=== PATIENT | female | born 1930 | race Caucasian/White ===

== ENCOUNTER → 2016-05-24 | Outpatient (REF) | payer OTHER ==
[~2016-05-24] MED LIST: /PRAV20TA OR; /WARF25TA OR; ASPIRIN PO; FISHCAP; HYDROCODONE PO; LOPR50TA OR; LOSARTAN/HCTZ PO; PERC5TAB8 OR; TYLENOL PO
[2016-05-24 18:50] LABS: ALBUMIN 3.8 GM/DL (3.2-5.2); ALBUMIN/GLOBULIN RATIO 1.31 (1.00-1.93); BILIRUBIN,TOTAL 0.8 MG/DL (0.2-1.0); CREATININE FOR GFR 1.04 MG/DL (0.55-1.02); GLOMERULAR FILTRATION RATE 53.9 (>32); POTASSIUM SERUM 4.2 MEQ/L (3.5-5.1); TOTAL PROTEIN 6.7 GM/DL (6.4-8.2)
== END ==
LOC: M SFHCCLAY 11:32
PROVIDERS: ATTEND Family Medicine
DX: I10 Essential (primary) hypertension (principal)
CPT/HCPCS: 80053; G0463

== ENCOUNTER → 2016-11-13 | Outpatient (REF) | payer OTHER ==
[2016-11-13 13:11] LABS: ALBUMIN 3.5 GM/DL (3.2-5.2); ALKALINE PHOSPHATASE 90 U/L (45-117); ALT/SGPT 15 U/L (12-78); ANION GAP 5 MEQ/L (8-16); AST/SGOT 16 U/L (15-37); BLOOD UREA NITROGEN 22 MG/DL (7-18); CALCIUM LEVEL 8.7 MG/DL (8.8-10.2); CARBON DIOXIDE LEVEL 31 MEQ/L (21-32); CHLORIDE LEVEL 103 MEQ/L (98-107); CREATININE FOR GFR 0.84 MG/DL (0.55-1.02); GLOMERULAR FILTRATION RATE > 60.0 (>32); GLUCOSE, FASTING 87 MG/DL (83-110); POTASSIUM SERUM 3.6 MEQ/L (3.5-5.1); SODIUM LEVEL 139 MEQ/L (136-145); TOTAL PROTEIN 6.2 GM/DL (6.4-8.2)
== END ==
LOC: M SFHCCLAY 09:31
PROVIDERS: ATTEND Family Medicine
DX: I10 Essential (primary) hypertension (principal)
CPT/HCPCS: 80053; G0463

== ENCOUNTER → 2017-03-25 | Outpatient (REF) | payer OTHER ==
[2017-03-26 13:46] LABS: ALBUMIN/GLOBULIN RATIO 0.94 (1.00-1.93); BILIRUBIN,TOTAL 0.9 MG/DL (0.2-1.0); CALCIUM LEVEL 8.9 MG/DL (8.8-10.2); CREATININE FOR GFR 1.01 MG/DL (0.55-1.02); FREE T4 1.64 NG/DL (0.76-1.46); GLOMERULAR FILTRATION RATE 55.6 (>32); POTASSIUM SERUM 3.7 MEQ/L (3.5-5.1); TOTAL PROTEIN 6.2 GM/DL (6.4-8.2)
== END ==
LOC: M SFHCCLAY 16:17
PROVIDERS: ATTEND Family Medicine
DX: R60.9 Edema, unspecified (principal)
CPT/HCPCS: 36415; 80053; 84439; 84443; G0463

== ENCOUNTER → 2017-04-11 | Outpatient (REF) | payer OTHER ==
[2017-04-11 17:25] LABS: BASO # 0.1 10^3/uL (0.0-0.2); EOS # 0.1 10^3/uL (0.0-0.50); EOS % 1.4 % (0.0-3.0); IMMATURE GRANULOCYTE % 0.4 % (0-0); LYMPH # 1.2 10^3/uL (1.5-4.5); LYMPH % 24.7 % (24.0-44.0); MEAN CORPUSCULAR HEMOGLOBIN 30.9 pg (27.0-33.0); MEAN CORPUSCULAR HGB CONC 32.1 g/dl (32.0-36.5); MEAN CORPUSCULAR VOLUME 96.4 fl (80.0-96.0); MONO # 0.5 10^3/uL (0.0-0.8); MONO % 10.4 % (0.0-5.0); NEUTROPHILS % 62.1 % (36.0-66.0); PLATELET COUNT, AUTOMATED 220 10^3/uL (150-450); RED CELL DISTRIBUTION WIDTH 16.1 % (11.5-14.5); WHITE BLOOD COUNT 4.9 10^3/uL (4.0-10.0)
[2017-04-11 17:47] LABS: CREATININE FOR GFR 0.96 MG/DL (0.55-1.02); GLOMERULAR FILTRATION RATE 58.9 (>32); POTASSIUM SERUM 3.7 MEQ/L (3.5-5.1)
== END ==
LOC: M SFHCCLAY 11:40
PROVIDERS: ATTEND Family Medicine
DX: R53.83 Other fatigue (principal); I10 Essential (primary) hypertension; I48.0 Paroxysmal atrial fibrillation

== ENCOUNTER → 2017-04-11 | Outpatient (CLI) | payer OTHER ==
--- NOTE | 2017-04-11 17:15 | REP ---
CHEST X-RAY: CLINICAL: Hypertension and chest pain. TECHNIQUE: PA and lateral. COMPARISON: 08/13/2011 FINDINGS: Cardiomegaly is appreciated with pace maker leads overlying the right atrium and right ventricle. The lung cain demonstrates diffuse chronic interstitial changes with prominent pulmonary vasculature and scattered basilar ground glass opacities (right greater than left). Subtle superimposed acute atelectasis can not be excluded. Skeletal structure demonstrate age related degenerative changes, predominantly involving the thoracic spine and shoulders. IMPRESSION: Cardiomegaly and chronic interstitial changes including evidence for chronic pulmonary vasculature congestion. Superimposed interstitial edema and basilar atelectasis can not be excluded. Stable hiatal hernia.
== END ==
LOC: M CLY 11:48
PROVIDERS: ATTEND Family Medicine
DX: I10 Essential (primary) hypertension (principal); K44.9 Diaphragmatic hernia without obstruction or gangrene; Z95.0 Presence of cardiac pacemaker; R53.83 Other fatigue; I48.0 Paroxysmal atrial fibrillation
CPT/HCPCS: 71020; 80048; 83540; 85025; G0463

== ENCOUNTER 2017-05-25 14:02 | Inpatient (IN) | payer OTHER, MEDICARE ==
[2017-05-25 14:55] LABS: BASO % 0.7 % (0.0-1.0); EOS # 0.2 10^3/uL (0.0-0.50); EOS % 3.4 % (0.0-3.0); HEMOGLOBIN 12.3 g/dl (12.0-16.0); IMMATURE GRANULOCYTE % 0.4 % (0-0); LYMPH # 1.3 10^3/uL (1.5-4.5); LYMPH % 24.3 % (24.0-44.0); MEAN CORPUSCULAR HEMOGLOBIN 28.7 pg (27.0-33.0); MEAN CORPUSCULAR HGB CONC 32.4 g/dl (32.0-36.5); MEAN CORPUSCULAR VOLUME 88.6 fl (80.0-96.0); MONO # 0.8 10^3/uL (0.0-0.8); MONO % 14.6 % (0.0-5.0); NEUTROPHILS % 56.6 % (36.0-66.0); PLATELET COUNT, AUTOMATED 226 10^3/uL (150-450); RED BLOOD COUNT 4.29 10^6/uL (4.00-5.40); RED CELL DISTRIBUTION WIDTH 14.5 % (11.5-14.5); WHITE BLOOD COUNT 5.4 10^3/uL (4.0-10.0)
[2017-05-25 15:25] LABS: ALBUMIN 3.3 GM/DL (3.2-5.2); ALKALINE PHOSPHATASE 152 U/L (45-117); ALT/SGPT 67 U/L (12-78); ANION GAP 11 MEQ/L (8-16); AST/SGOT 71 U/L (7-37); BILIRUBIN,DIRECT 0.4 MG/DL (0.0-0.2); BLOOD UREA NITROGEN 36 MG/DL (7-18); CALCIUM LEVEL 8.6 MG/DL (8.8-10.2); CARBON DIOXIDE LEVEL 27 MEQ/L (21-32); CHLORIDE LEVEL 98 MEQ/L (98-107); CPK CREATINE PHOSPHOKINASE 41 U/L (26-192); CREATININE FOR GFR 1.25 MG/DL (0.55-1.02); GLOMERULAR FILTRATION RATE 43.5 (>32); GLUCOSE, FASTING 131 MG/DL (83-110); LIPASE 211 U/L (73-393); MAGNESIUM LEVEL 2.1 MG/DL (1.8-2.4); POTASSIUM SERUM 3.8 MEQ/L (3.5-5.1); SODIUM LEVEL 136 MEQ/L (136-145); TOTAL PROTEIN 6.3 GM/DL (6.4-8.2); TROPONIN I < 0.02 NG/ML (< 0.10)
[2017-05-25 15:31] LABS: MB/CK RELATIVE INDEX 2.43 (< OR =4); NT-PRO BNP 18800 PG/ML (<450)
[2017-05-25] MEDS: FUROSEMIDE 40 MG/4 ML VIAL (J1940) IV (16:38)
[2017-05-25] MEDS ORDERED: ISOVUE-370 76% 100ML VIAL (Q9967) As Ordered (16:42)
[2017-05-25] MEDS ORDERED: CEPACOL LOZENGE PO (17:15)
[2017-05-25] MEDS ORDERED: ACETAMINOPHEN TAB 650MG DOSE (2X325MG) PO (17:15)
[2017-05-25] MEDS ORDERED: ONDANSETRON 4MG/2ML VIAL (J2405) IV (17:15)
[2017-05-25 18:04] LABS: MAGNESIUM LEVEL 2.2 MG/DL (1.8-2.4)
[2017-05-25 18:15] LABS: LACTIC ACID SEPSIS PROTOCOL 2.2 MMOL/L (0.4-2.0)
[2017-05-25] MEDS: POTASSIUM CHLORIDE 10 MEQ SR TABLET PO (18:34)
[2017-05-25] MEDS: RIVAROXABAN 15 MG TAB (XARELTO) PO (18:34)
[2017-05-25] MEDS: METOPROLOL TART 25 MG TABLET PO (20:57)
[2017-05-25] MEDS: DOCUSATE SODIUM 100 MG CAP PO (20:57)
[2017-05-25] MEDS: PERCOCET 5MG/325MG TAB PO (21:01)
[2017-05-25 21:15] LABS: CPK CREATINE PHOSPHOKINASE 35 U/L (26-192); TROPONIN I 0.02 NG/ML (< 0.10)
[2017-05-25 21:16] LABS: MB/CK RELATIVE INDEX 2.85 (< OR =4)
[2017-05-25] MEDS: FUROSEMIDE 20 MG/2 ML VIAL (J1940) IV (22:45)
[2017-05-26 04:38] LABS: BASO # 0.1 10^3/uL (0.0-0.2); BASO % 1.1 % (0.0-1.0); EOS # 0.2 10^3/uL (0.0-0.50); EOS % 3.7 % (0.0-3.0); HEMATOCRIT 36.3 % (36.0-47.0); HEMOGLOBIN 11.7 g/dl (12.0-16.0); IMMATURE GRANULOCYTE % 0.4 % (0-0); LYMPH # 1.5 10^3/uL (1.5-4.5); MEAN CORPUSCULAR HGB CONC 32.2 g/dl (32.0-36.5); MEAN CORPUSCULAR VOLUME 86.8 fl (80.0-96.0); MONO # 0.9 10^3/uL (0.0-0.8); MONO % 15.9 % (0.0-5.0); NEUTROPHILS # 2.8 10^3/uL (1.8-7.7); NEUTROPHILS % 51.9 % (36.0-66.0); PLATELET COUNT, AUTOMATED 217 10^3/uL (150-450); RED BLOOD COUNT 4.18 10^6/uL (4.00-5.40); RED CELL DISTRIBUTION WIDTH 14.4 % (11.5-14.5); WHITE BLOOD COUNT 5.4 10^3/uL (4.0-10.0)
[2017-05-26 04:50] LABS: INR 2.13; PROTHROMBIN TIME 24.6 SECONDS (12.4-14.5)
[2017-05-26 04:51] LABS: PARTIAL THROMBOPLASTIN TIME 40.9 SECONDS (26.8-37.9)
[2017-05-26 05:07] LABS: ALBUMIN 2.9 GM/DL (3.2-5.2); ALBUMIN/GLOBULIN RATIO 0.91 (1.00-1.93); ALKALINE PHOSPHATASE 133 U/L (45-117); ALT/SGPT 75 U/L (12-78); ANION GAP 11 MEQ/L (8-16); AST/SGOT 88 U/L (7-37); BILIRUBIN,TOTAL 1.2 MG/DL (0.2-1.0); BLOOD UREA NITROGEN 36 MG/DL (7-18); CALCIUM LEVEL 8.8 MG/DL (8.8-10.2); CARBON DIOXIDE LEVEL 29 MEQ/L (21-32); CHLORIDE LEVEL 97 MEQ/L (98-107); CPK CREATINE PHOSPHOKINASE 32 U/L (26-192); CREATININE FOR GFR 1.37 MG/DL (0.55-1.02); GLOMERULAR FILTRATION RATE 39.1 (>32); GLUCOSE, FASTING 93 MG/DL (83-110); MB/CK RELATIVE INDEX 3.12 (< OR =4); POTASSIUM SERUM 3.5 MEQ/L (3.5-5.1); SODIUM LEVEL 137 MEQ/L (136-145); TOTAL PROTEIN 6.1 GM/DL (6.4-8.2); TROPONIN I 0.03 NG/ML (< 0.10)
[2017-05-26] MEDS: DOCUSATE SODIUM 100 MG CAP PO ×2 (08:00→21:24)
[2017-05-26] MEDS: OCUVITE 1 TAB PO (08:00)
[2017-05-26] MEDS: METOPROLOL TART 25 MG TABLET PO ×3 (08:00→21:25)
[2017-05-26] MEDS: hydroCHLOROthiazide 12.5 MG CAPSULE PO (08:01)
[2017-05-26] MEDS: PANTOPRAZOLE 40MG TAB (PROTONIX) PO (08:01)
[2017-05-26] MEDS: PERCOCET 5MG/325MG TAB PO ×2 (08:02→21:25)
[2017-05-26] MEDS: FUROSEMIDE 20 MG/2 ML VIAL (J1940) IV (12:31)
[2017-05-26] MEDS: RIVAROXABAN 15 MG TAB (XARELTO) PO (18:24)
[2017-05-27] MEDS: FUROSEMIDE 20 MG/2 ML VIAL (J1940) IV ×2 (00:43→11:32)
[2017-05-27 05:34] LABS: BASO # 0.1 10^3/uL (0.0-0.2); BASO % 1.1 % (0.0-1.0); EOS # 0.2 10^3/uL (0.0-0.50); EOS % 2.7 % (0.0-3.0); HEMATOCRIT 38.2 % (36.0-47.0); HEMOGLOBIN 12.2 g/dl (12.0-16.0); IMMATURE GRANULOCYTE % 0.4 % (0-0); LYMPH # 1.1 10^3/uL (1.5-4.5); LYMPH % 20.1 % (24.0-44.0); MEAN CORPUSCULAR HGB CONC 31.9 g/dl (32.0-36.5); MEAN CORPUSCULAR VOLUME 87.6 fl (80.0-96.0); MONO # 0.9 10^3/uL (0.0-0.8); MONO % 15.9 % (0.0-5.0); NEUTROPHILS # 3.3 10^3/uL (1.8-7.7); NEUTROPHILS % 59.8 % (36.0-66.0); PLATELET COUNT, AUTOMATED 219 10^3/uL (150-450); RED BLOOD COUNT 4.36 10^6/uL (4.00-5.40); RED CELL DISTRIBUTION WIDTH 14.6 % (11.5-14.5); WHITE BLOOD COUNT 5.5 10^3/uL (4.0-10.0)
[2017-05-27 05:54] LABS: INR 1.44; PROTHROMBIN TIME 17.9 SECONDS (12.4-14.5)
[2017-05-27 05:55] LABS: PARTIAL THROMBOPLASTIN TIME 34.9 SECONDS (26.8-37.9)
[2017-05-27 05:58] LABS: ALBUMIN 3.2 GM/DL (3.2-5.2); ALKALINE PHOSPHATASE 140 U/L (45-117); ALT/SGPT 96 U/L (12-78); ANION GAP 10 MEQ/L (8-16); AST/SGOT 96 U/L (7-37); BILIRUBIN,TOTAL 1.2 MG/DL (0.2-1.0); BLOOD UREA NITROGEN 34 MG/DL (7-18); CALCIUM LEVEL 8.7 MG/DL (8.8-10.2); CARBON DIOXIDE LEVEL 31 MEQ/L (21-32); CHLORIDE LEVEL 96 MEQ/L (98-107); CREATININE FOR GFR 1.35 MG/DL (0.55-1.02); GLOMERULAR FILTRATION RATE 39.8 (>32); GLUCOSE, FASTING 121 MG/DL (83-110); MAGNESIUM LEVEL 1.8 MG/DL (1.8-2.4); POTASSIUM SERUM 3.1 MEQ/L (3.5-5.1); SODIUM LEVEL 137 MEQ/L (136-145); TOTAL PROTEIN 6.4 GM/DL (6.4-8.2)
[2017-05-27] MEDS: METOPROLOL TART 25 MG TABLET PO ×4 (09:00→23:00)
[2017-05-27] MEDS: DOCUSATE SODIUM 100 MG CAP PO ×2 (09:36→21:00)
[2017-05-27] MEDS: OCUVITE 1 TAB PO (09:36)
[2017-05-27] MEDS: PANTOPRAZOLE 40MG TAB (PROTONIX) PO (09:36)
[2017-05-27] MEDS: hydroCHLOROthiazide 12.5 MG CAPSULE PO (09:36)
[2017-05-27] MEDS: POTASSIUM CHLORIDE 10 MEQ SR TABLET PO ×2 (09:38→22:45)
[2017-05-27] MEDS: RIVAROXABAN 15 MG TAB (XARELTO) PO (17:05)
[2017-05-28 05:58] LABS: BASO # 0.1 10^3/uL (0.0-0.2); BASO % 0.8 % (0.0-1.0); EOS # 0.2 10^3/uL (0.0-0.50); HEMATOCRIT 38.8 % (36.0-47.0); HEMOGLOBIN 12.2 g/dl (12.0-16.0); IMMATURE GRANULOCYTE % 0.4 % (0-0); LYMPH # 1.6 10^3/uL (1.5-4.5); LYMPH % 22.4 % (24.0-44.0); MEAN CORPUSCULAR HEMOGLOBIN 27.8 pg (27.0-33.0); MEAN CORPUSCULAR HGB CONC 31.4 g/dl (32.0-36.5); MEAN CORPUSCULAR VOLUME 88.4 fl (80.0-96.0); MONO # 1.2 10^3/uL (0.0-0.8); NEUTROPHILS # 4.2 10^3/uL (1.8-7.7); NEUTROPHILS % 57.4 % (36.0-66.0); PLATELET COUNT, AUTOMATED 221 10^3/uL (150-450); RED BLOOD COUNT 4.39 10^6/uL (4.00-5.40); RED CELL DISTRIBUTION WIDTH 14.5 % (11.5-14.5); WHITE BLOOD COUNT 7.3 10^3/uL (4.0-10.0)
[2017-05-28 06:05] LABS: INR 2.05; PARTIAL THROMBOPLASTIN TIME 42.2 SECONDS (26.8-37.9); PROTHROMBIN TIME 23.8 SECONDS (12.4-14.5)
[2017-05-28 06:24] LABS: ALBUMIN 3.4 GM/DL (3.2-5.2); ALBUMIN/GLOBULIN RATIO 0.97 (1.00-1.93); ALKALINE PHOSPHATASE 151 U/L (45-117); ALT/SGPT 92 U/L (12-78); ANION GAP 11 MEQ/L (8-16); AST/SGOT 82 U/L (7-37); BILIRUBIN,TOTAL 1.3 MG/DL (0.2-1.0); BLOOD UREA NITROGEN 35 MG/DL (7-18); CALCIUM LEVEL 9.2 MG/DL (8.8-10.2); CARBON DIOXIDE LEVEL 30 MEQ/L (21-32); CHLORIDE LEVEL 96 MEQ/L (98-107); CREATININE FOR GFR 1.43 MG/DL (0.55-1.02); GLOMERULAR FILTRATION RATE 37.2 (>32); GLUCOSE, FASTING 121 MG/DL (70-100); MAGNESIUM LEVEL 1.8 MG/DL (1.8-2.4); POTASSIUM SERUM 4.2 MEQ/L (3.5-5.1); SODIUM LEVEL 137 MEQ/L (136-145); TOTAL PROTEIN 6.9 GM/DL (6.4-8.2)
[2017-05-28] MEDS: PANTOPRAZOLE 40MG TAB (PROTONIX) PO (09:21)
[2017-05-28] MEDS: DOCUSATE SODIUM 100 MG CAP PO ×2 (09:21→20:09)
[2017-05-28] MEDS: OCUVITE 1 TAB PO (09:21)
[2017-05-28] MEDS: DIGOXIN 0.25 MG TAB PO ×2 (09:22→17:46)
[2017-05-28] MEDS: hydroCHLOROthiazide 12.5 MG CAPSULE PO (09:22)
[2017-05-28] MEDS: METOPROLOL TART 25 MG TABLET PO ×3 (09:22→20:12)
[2017-05-28] MEDS: FUROSEMIDE 20 MG/2 ML VIAL (J1940) IV ×3 (12:43→23:56)
[2017-05-28 16:43] LABS: NT-PRO BNP 21081 PG/ML (<450)
[2017-05-28] MEDS: RIVAROXABAN 15 MG TAB (XARELTO) PO (17:46)
[2017-05-28] MEDS: RAMELTEON 8 MG TAB (ROZEREM) PO (20:10)
[2017-05-28] MEDS: PERCOCET 5MG/325MG TAB PO (20:10)
[2017-05-28 20:47] LABS: BEDSIDE GLUCOSE 134 MG/DL (83-110)
[2017-05-29 05:55] LABS: BASO # 0.1 10^3/uL (0.0-0.2); BASO % 1.1 % (0.0-1.0); EOS # 0.3 10^3/uL (0.0-0.50); EOS % 5.7 % (0.0-3.0); HEMATOCRIT 35.7 % (36.0-47.0); HEMOGLOBIN 11.6 g/dl (12.0-16.0); IMMATURE GRANULOCYTE % 0.4 % (0-0); LYMPH # 1.2 10^3/uL (1.5-4.5); LYMPH % 23.1 % (24.0-44.0); MEAN CORPUSCULAR HEMOGLOBIN 28.3 pg (27.0-33.0); MEAN CORPUSCULAR HGB CONC 32.5 g/dl (32.0-36.5); MEAN CORPUSCULAR VOLUME 87.1 fl (80.0-96.0); MONO # 0.9 10^3/uL (0.0-0.8); MONO % 16.6 % (0.0-5.0); NEUTROPHILS # 2.8 10^3/uL (1.8-7.7); NEUTROPHILS % 53.1 % (36.0-66.0); PLATELET COUNT, AUTOMATED 188 10^3/uL (150-450); RED CELL DISTRIBUTION WIDTH 14.6 % (11.5-14.5); WHITE BLOOD COUNT 5.2 10^3/uL (4.0-10.0)
[2017-05-29 06:13] LABS: ALBUMIN/GLOBULIN RATIO 0.97 (1.00-1.93); ALKALINE PHOSPHATASE 122 U/L (45-117); ALT/SGPT 73 U/L (12-78); ANION GAP 8 MEQ/L (8-16); AST/SGOT 60 U/L (7-37); BILIRUBIN,TOTAL 1.2 MG/DL (0.2-1.0); BLOOD UREA NITROGEN 32 MG/DL (7-18); CALCIUM LEVEL 8.6 MG/DL (8.8-10.2); CARBON DIOXIDE LEVEL 31 MEQ/L (21-32); CHLORIDE LEVEL 98 MEQ/L (98-107); CREATININE FOR GFR 1.31 MG/DL (0.55-1.02); GLOMERULAR FILTRATION RATE 41.2 (>32); GLUCOSE, FASTING 102 MG/DL (70-100); MAGNESIUM LEVEL 1.4 MG/DL (1.8-2.4); POTASSIUM SERUM 3.4 MEQ/L (3.5-5.1); SODIUM LEVEL 137 MEQ/L (136-145); TOTAL PROTEIN 6.1 GM/DL (6.4-8.2)
[2017-05-29 06:15] LABS: INR 2.47; PARTIAL THROMBOPLASTIN TIME 43.9 SECONDS (26.8-37.9); PROTHROMBIN TIME 27.7 SECONDS (12.4-14.5)
[2017-05-29] MEDS: POTASSIUM CHLORIDE 10 MEQ SR TABLET PO (08:16)
[2017-05-29] MEDS: OCUVITE 1 TAB PO (08:17)
[2017-05-29] MEDS: DOCUSATE SODIUM 100 MG CAP PO ×2 (08:22→20:38)
[2017-05-29] MEDS: hydroCHLOROthiazide 12.5 MG CAPSULE PO ×2 (08:22→08:25)
[2017-05-29] MEDS: FUROSEMIDE 20 MG/2 ML VIAL (J1940) IV ×3 (08:23→17:34)
[2017-05-29] MEDS: METOPROLOL TART 25 MG TABLET PO ×3 (08:23→20:39)
[2017-05-29] MEDS: DIGOXIN 0.125 MG TAB PO (08:23)
[2017-05-29] MEDS: MAG SULF 1GM/100ML (MAG RUN) 1 GM in APPROPRIATE DILUENT 1 EA IV (08:24)
[2017-05-29] MEDS ORDERED: DIGOXIN 0.25 MG TAB PO (09:00)
[2017-05-29] MEDS ORDERED: SLF 3 ML SYR IV (14:15)
[2017-05-29] MEDS: LIDOCAINE 5% (LIDODERM) PATCH TD (14:40)
[2017-05-29] MEDS: PERCOCET 5MG/325MG TAB PO (20:39)
[2017-05-29] MEDS: **NOTE PATIENT COMMENT** MISC XX (20:39)
[2017-05-29] MEDS: SLF 3 ML SYR IV (20:39)
[2017-05-30] MEDS: SLF 3 ML SYR IV (05:26)
[2017-05-30] MEDS: FUROSEMIDE 20 MG/2 ML VIAL (J1940) IV ×3 (05:26→12:55)
[2017-05-30 06:14] LABS: BASO % 0.8 % (0.0-1.0); EOS # 0.4 10^3/uL (0.0-0.50); EOS % 7.4 % (0.0-3.0); HEMATOCRIT 37.8 % (36.0-47.0); IMMATURE GRANULOCYTE % 0.4 % (0-0); LYMPH # 1.2 10^3/uL (1.5-4.5); LYMPH % 23.9 % (24.0-44.0); MEAN CORPUSCULAR HEMOGLOBIN 27.4 pg (27.0-33.0); MEAN CORPUSCULAR HGB CONC 31.7 g/dl (32.0-36.5); MEAN CORPUSCULAR VOLUME 86.3 fl (80.0-96.0); MONO # 0.7 10^3/uL (0.0-0.8); MONO % 15.1 % (0.0-5.0); NEUTROPHILS # 2.6 10^3/uL (1.8-7.7); NEUTROPHILS % 52.4 % (36.0-66.0); PLATELET COUNT, AUTOMATED 199 10^3/uL (150-450); RED BLOOD COUNT 4.38 10^6/uL (4.00-5.40); RED CELL DISTRIBUTION WIDTH 14.6 % (11.5-14.5); WHITE BLOOD COUNT 4.9 10^3/uL (4.0-10.0)
[2017-05-30 06:27] LABS: INR 1.26; PARTIAL THROMBOPLASTIN TIME 33.7 SECONDS (26.8-37.9); PROTHROMBIN TIME 16.1 SECONDS (12.4-14.5)
[2017-05-30 06:39] LABS: ALBUMIN 3.2 GM/DL (3.2-5.2); ALBUMIN/GLOBULIN RATIO 1.03 (1.00-1.93); ALKALINE PHOSPHATASE 114 U/L (45-117); ALT/SGPT 63 U/L (12-78); ANION GAP 9 MEQ/L (8-16); AST/SGOT 45 U/L (7-37); BILIRUBIN,TOTAL 1.3 MG/DL (0.2-1.0); BLOOD UREA NITROGEN 29 MG/DL (7-18); CALCIUM LEVEL 8.5 MG/DL (8.8-10.2); CARBON DIOXIDE LEVEL 31 MEQ/L (21-32); CHLORIDE LEVEL 98 MEQ/L (98-107); CREATININE FOR GFR 1.19 MG/DL (0.55-1.02); GLUCOSE, FASTING 97 MG/DL (70-100); MAGNESIUM LEVEL 1.7 MG/DL (1.8-2.4); POTASSIUM SERUM 3.4 MEQ/L (3.5-5.1); SODIUM LEVEL 138 MEQ/L (136-145); TOTAL PROTEIN 6.3 GM/DL (6.4-8.2)
[2017-05-30] MEDS: DIGOXIN 0.125 MG TAB PO (08:25)
[2017-05-30] MEDS: METOPROLOL TART 25 MG TABLET PO (08:26)
[2017-05-30] MEDS: OCUVITE 1 TAB PO (08:26)
[2017-05-30] MEDS: LIDOCAINE 5% (LIDODERM) PATCH TD (08:27)
[2017-05-30] MEDS: DOCUSATE SODIUM 100 MG CAP PO (08:27)
[2017-05-30] MEDS: POTASSIUM CHLORIDE 10 MEQ SR TABLET PO ×2 (08:44→10:35)
[2017-05-30] MEDS: MAG SULF 1GM/100ML (MAG RUN) 1 GM in APPROPRIATE DILUENT 1 EA IV (10:34)
[2017-05-30 10:50] LABS: CPK CREATINE PHOSPHOKINASE 47 U/L (26-192); MB/CK RELATIVE INDEX 2.12 (< OR =4); TROPONIN I 0.02 NG/ML (< 0.10)
== END 2017-05-30 13:45 | disposition short-term general hospital (02) | DRG 306 ==
LOC: M ED 14:02 → M ED INP 16:27 → M PCU 18:03
DX: I35.0 Nonrheumatic aortic (valve) stenosis (principal); I50.33 Acute on chronic diastolic (congestive) heart failure; N17.9 Acute kidney failure, unspecified; I11.0 Hypertensive heart disease with heart failure; I48.2 Chronic atrial fibrillation; E78.5 Hyperlipidemia, unspecified; H35.30 Unspecified macular degeneration; I73.9 Peripheral vascular disease, unspecified; I72.3 Aneurysm of iliac artery; G47.37 Central sleep apnea in conditions classified elsewhere; I34.0 Nonrheumatic mitral (valve) insufficiency; M25.512 Pain in left shoulder; I27.20 Pulmonary hypertension, unspecified; K76.1 Chronic passive congestion of liver; K59.00 Constipation, unspecified; Z95.0 Presence of cardiac pacemaker; Z85.41 Personal history of malignant neoplasm of cervix uteri; Z92.21 Personal history of antineoplastic chemotherapy; Z92.3 Personal history of irradiation; Z96.641 Presence of right artificial hip joint; Z79.01 Long term (current) use of anticoagulants; Z79.891 Long term (current) use of opiate analgesic; Z79.899 Other long term (current) drug therapy